=== PATIENT | male | born 2000 | race Caucasian/White ===

== ENCOUNTER 2021-07-31 18:18 | Emergency (ER) | payer BC, MEDICAID ==
[~2021-07-31] VITALS: Ht 182.9 cm; Wt 84.0 kg
[2021-07-31] MEDS ORDERED: CYCLOBENZAPRINE 10MG TABLET PO ONE (20:30)
[2021-07-31] MEDS ORDERED: IBUPROFEN 400MG TABLET PO ONE (20:30)
[2021-08-01] MEDS ORDERED: IBUP-2028 MT (03:19)
[2021-08-01] MEDS ORDERED: CYCL10TA7 MT (03:19)
[2021-08-01 04:00] VITALS: BP 114/69
== END 2021-08-01 04:13 | disposition home or self-care (01) ==
LOC: EDSEX 18:18 → ER 19:00
DX: M54.50 Low back pain, unspecified (principal); Z98.890 Other specified postprocedural states
CPT/HCPCS: 74176; 99285